=== PATIENT | female | born 1955 | race Caucasian/White ===

== ENCOUNTER → 2019-09-21 09:03 | Outpatient (BNVA) | payer OTHER, SELFPAY | PROVIDERS: Family Provider General Practice; PCP Family Medicine; Visit Provider Internal Medicine Rheumatology | DX: M19.041 Primary osteoarthritis, right hand (principal); M19.042 Primary osteoarthritis, left hand; Z79.899 Other long term (current) drug therapy; E11.65 Type 2 diabetes mellitus with hyperglycemia; R76.8 Other specified abnormal immunological findings in serum; K25.5 Chronic or unspecified gastric ulcer with perforation; Z79.1 Long term (current) use of non-steroidal anti-inflammatories (NSAID); Z79.84 Long term (current) use of oral hypoglycemic drugs | CPT/HCPCS: 36415; 99203; 99204 ==

== ENCOUNTER 2019-09-21 11:17 | Outpatient (CLI) | payer OTHER, SELFPAY ==
--- NOTE | 2019-09-21 11:27 | XR_ITS ---
WS: [id number] XR hand LT min 3V* [id number] REASON FOR EXAM: osteoarthritis FINDINGS: [place] the nodes are seen off the second, third, fourth distal interphalangeal joints. Th ere is spurring off the middle interphalangeal joints third and second phalanges. There is early degenerate changes of the first metacarpal carpal articulation. There is no fractures or other dyscrasias. XR/XR hand LT min 3V* [id number] IMPRESSION: Moderately severe osteoarthritic changes of the left hand.
--- NOTE | 2019-09-21 11:27 | XR_ITS ---
WS: [id number] XR foot LT min 3V* [id number] REASON FOR EXAM: osteoarthritis FINDINGS: Degenerate changes in spurring are seen off the first, second, third, fourth, fifth distal interphalangeal joints. The metatarsals are normal. The calcaneus shows retrocalcaneal exostosis and there is spurring off the calcaneus seen. XR/XR foot LT min 3V* [id number] IMPRESSION: Osteoarthritic changes of the foot Spur off the calcaneus Retrocalcaneal exostosis.
--- NOTE | 2019-09-21 11:27 | XR_ITS ---
WS: [id number] XR hand RT min 3V* [id number] REASON FOR EXAM: osteoarthritis FINDINGS: Degenerates spurring and [place] nodes of the second, third, fourth distal interphalangeal joints. There is also noted [place] nodes off the middle interphalangeal joints of the third and fo urth phalanges disease. The carpal bones and metacarpals were essentially normal. XR/XR hand RT min 3V* [id number] IMPRESSION: Moderately advanced osteoarthritic changes of the right hand.
--- NOTE | 2019-09-21 11:27 | XR_ITS ---
WS: [id number] XR foot RT min 3V* [id number] REASON FOR EXAM: osteoarthritis FINDINGS: Prominent spurring off the medial aspects of the distal first phalanx. Spurring is also see n at the second, third, fourth and fifth phalanges. A tailor's bunion seen at the fifth metatarsal he ad. In the lateral view there is a large calcaneal spur with retrocalcaneal exostosis. XR/XR foot RT min 3V* [id number] IMPRESSION: Osteoarthritic changes of the foot Tailors bunion fifth metatarsal head Large retrocalcaneal exostosis and large calcaneal spur.
[2019-09-21 12:13] LABS: Basophils # 0.1 10^3/uL (0.0-0.1); Basophils % 0.7 %; Eosinophils # 0.2 10^3/uL (0.0-0.8); Eosinophils % 3.4 %; Hematocrit 37.6 % (37.0-47.0); Lymphocytes # 2.4 10^3/uL (0.8-4.8); Lymphocytes % 35.1 %; Mean Corpuscular HGB Conc 31.9 g/dL (30.0-36.0); Mean Corpuscular Hemoglobin 28.1 pg (28.0-34.0); Mean Corpuscular Volume 88.1 fL (81-99); Mean Platelet Volume 9.1 fL (7.4-10.4); Monocytes # 0.5 10^3/uL (0.2-0.9); Monocytes % 7.5 %; Neutrophils # 3.6 10^3/uL (1.8-7.7); Nucleated Red Blood Cells % 0 %; Platelet Count 290 10^3/cmm (130-400); Red Blood Count 4.27 10^6/uL (4.1-5.3); Red Cell Distribution Width 12.8 % (12.1-15.1); White Blood Count 6.8 10^3/uL (4.0-10.0)
[2019-09-21 12:46] LABS: Alanine Aminotransferase 34 U/L (0-33); Albumin Level 4.8 g/dL (3.5-5.2); Alkaline Phosphatase 56 IU/L (35-105); Aspartate Amino Transferase 22 U/L (0-32); C Reactive Protein 0.3 mg/L (0.0-4.9); Globulin 2.5 g/dL (1.3-4.6); Glomerular Filtration Rate 55.8 mL/min (90-130); Total Bilirubin 0.4 mg/dL (0.15-1.2); Total Protein 7.3 g/dL (6.6-8.7)
[2019-09-21 13:03] LABS: Erythrocyte Sedimentation Rate 16 mm/hr (0-15)
[2019-09-22 14:40] LABS: Thyroglobulin AB <1 IU/mL (< or = 1)
[2019-09-27 06:52] LABS: Anti-Nuclear Antibody Pattern Nuclear, Speckled; Anti-Nuclear Antibody Screen POSITIVE (NEGATIVE); Anti-Nuclear Antibody Titer 1:40 titer
== END 2019-09-21 11:18 | disposition home or self-care (01) ==
LOC: RAD 11:26
PROVIDERS: PCP Family Medicine; Visit Provider Internal Medicine Rheumatology
DX: M19.90 Unspecified osteoarthritis, unspecified site (principal); R76.8 Other specified abnormal immunological findings in serum; Z79.899 Other long term (current) drug therapy; M19.071 Primary osteoarthritis, right ankle and foot; M21.621 Bunionette of right foot; M77.31 Calcaneal spur, right foot; M19.042 Primary osteoarthritis, left hand; M19.041 Primary osteoarthritis, right hand; M19.072 Primary osteoarthritis, left ankle and foot; M77.32 Calcaneal spur, left foot
CPT/HCPCS: 73130; 73630; 80076; 82565; 85025; 85651; 86038; 86140; 86800